=== PATIENT | female | born 1970 | race Caucasian/White ===

== ENCOUNTER → 2016-11-15 | Outpatient (CLI) | payer BC ==
[~2016-11-15] MED LIST: ACET-1256 PO; ASPCH81 PO; BNT10 PO; BUPR-266 PEG; CALC-461 PO; CHOL100010 PO; CIPR-255 PO; CLON0.5T3 PO; IBUP-103 PO; METR0.75 TOP; MULTTAB83 PO; OMEG10002 PO; ONDA4TAB65 PO; PANT40TA PO; SERT1TAB68 PO
== END | disposition home or self-care (01) ==
LOC: C.PAPS 14:18
PROVIDERS: ATTEND Obstetrics & Gynecology
DX: Z01.419 Encounter for gynecological examination (general) (routine) without abnormal findings (principal)

== ENCOUNTER → 2017-03-01 | Outpatient (CLI) | payer BC ==
[2017-03-05 07:04] LABS: CHLAMYDIA TRACH RNA*** NOT DETECTED (NOT DETECTED); GC (NEIS GONORRHOEAE)RNA** NOT DETECTED (NOT DETECTED)
== END | disposition home or self-care (01) ==
LOC: C.LABSPEC 14:31
PROVIDERS: ATTEND Physician Assistant
DX: N89.8 Other specified noninflammatory disorders of vagina (principal)

== ENCOUNTER → 2017-05-14 | Outpatient (CLI) | payer BC ==
[2017-05-17 11:59] LABS: HERPES SIMPLEX CULT SOURCE OTHER-LEFT LABIA MIN; HERPES SIMPLEX VIRUS CULT NOT ISOLATED (NOT ISOLATED)
== END | disposition home or self-care (01) ==
LOC: C.LABSPEC 14:30
PROVIDERS: ATTEND Physician Assistant
DX: N89.8 Other specified noninflammatory disorders of vagina (principal); N94.9 Unspecified condition associated with female genital organs and menstrual cycle

== ENCOUNTER 2018-01-03 22:08 | Inpatient (IN) | payer BC, OTHER ==
[~2018-01-03] VITALS: Ht 167.6 cm; Wt 84.0 kg
[2018-01-03] MEDS ORDERED: ONDANSETRON INJ 2 MG/ML 2 ML VIAL IV STA (22:32)
[2018-01-03] MEDS ORDERED: SODIUM CHLORIDE 0.9% 1000ML 1,000 ML IV STA (22:32)
[2018-01-03] MEDS ORDERED: KETOROLAC TROMETHAMINE 30 MG/ML VIAL IV STA (22:32)
[2018-01-03] MEDS ORDERED: OPTIRAY 320 IV PRN (22:45)
[2018-01-03 23:02] LABS: EOS % 0.3 %; EOS ABS # 0.05 K/uL (0-0.5); HEMATOCRIT 40.9 % (37-47); HEMOGLOBIN 14.7 g/dL (12.0-16.0); IG# 0.06 K/uL (0.00-0.02); LYMPH ABS # 1.01 K/uL (1.2-3.4); MEAN CELL VOLUME 95.6 fL (80-100); MEAN CORPUSCULAR HEMOGLOBIN 34.3 pg (25-34); MEAN CORPUSCULAR HGB CONC 35.9 g/dl (32-36); MEAN PLATELET VOLUME 9.7 fL (7.4-10.4); MONO % 4.7 %; MONO ABS # 0.79 K/uL (0.11-0.59); NEUT % 88.6 %; NEUT ABS # 14.89 K/uL (1.4-6.5); PLATELET COUNT 276 K/uL (130-400); RED CELL DISTRIBUTION WIDTH CV 12.4 % (11.5-14.5); RED CELL DISTRIBUTION WIDTH SD 43.6 fL (36.4-46.3)
[2018-01-03 23:04] LABS: ISTAT CREATININE 0.7 mg/dl (0.6-1.3); ISTAT IONIZED CALCIUM 1.12 mmol/l (1.12-1.32); ISTAT POTASSIUM 3.7 mEq/L (3.3-5.0)
[2018-01-03 23:28] LABS: CREATININE 0.8 mg/dl (0.60-1.20)
[2018-01-03 23:29] LABS: POTASSIUM 3.5 mmol/L (3.5-5.1); TOTAL PROTEIN 7.9 gm/dl (6.4-8.2)
[2018-01-04] VITALS (12 sets, daily range): BP systolic 95–112; BP diastolic 54–70; PULSE 63–105; TEMP 36.3–37.2; O2SAT 92–97; Ht 167.6 cm; Wt 84.0 kg
[2018-01-04] MEDS ORDERED: PIPERACILLIN/TAZOBACTAM 4.5 GM/100ML D5W IV STA (00:17)
[2018-01-04] MEDS ORDERED: SODIUM CHLORIDE 0.9% 1000ML 1,000 ML IV STA (00:24)
[2018-01-04] MEDS ORDERED: ASPI81TA28 PO (00:45)
[2018-01-04] MEDS ORDERED: DOXY20TA3 PO (00:47)
[2018-01-04] MEDS ORDERED: MISCCAP80 PO (00:52)
--- NOTE | 2018-01-04 01:35 | History and Physical ---
History & Physical Date Jan 04, 2018. Chief Complaint RLQ abdominal pain History of Present Illness The patient is a 47 year old female with complaints of RLQ abdominal pain starting this evening when she went to get up from her chair at dinner. Reports the pain has been constant and severe. PSHx significant for right hemicolectomy with ileocolonic anastamosis with Dr. Lucas approximately 2 years ago, C- section x2. She had the resection due to a colonic mass found on colonoscopy with Dr. Plata. FHx positive for colon cancer (sister). She reports she had an infected incision site post-operatively after the colectomy. She has had a couple episodes of pain since her colectomy, one for which she states she was hospitalized for and place on antibiotics for a few days due to a microperforation. She reports she has felt warm today but denies fever/chills/ recent illness. Reports she has felt mildly nauseous but denies any vomiting. She called the nutrition tech doctor earlier this evening who instructed her to take miralax which did not help although produced a small BM. denies blood in stool. She has been urinating without difficulty. Last ate around 1700 She does take Aspirin 81mg PO QD but denies use of other blood thinning or anticoagulant medications. WBC 16.8. CT shows mucosal wall thickening and enhancement involving multiple small bowel loops in the right lower quadrant compatible with infectious or inflammatory process. Evidence of diffuse pneumoperitoneum concerning for bowel perforation. 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 Surgical Problems: (1) History of colon resection Additional History Hepatic Disease: No Endocrine Disorder: No Kidney Disease: No Hypertension: No Heart Disease: No Bleeding Tendencies: No Infectious Diseases: No Allergies Coded Allergies: Morphine and Related (Unverified Allergy, Intermediate, vomiting, 07/05/16) Azithromycin (Unverified Adverse Reaction, Unknown, VOMITING AND MIGRANES , 07/05/16) Home Medications Scheduled Aspirin (Aspirin Ec), 81 MG PO QPM Clonazepam (Klonopin), 0.5 MG PO QPM Doxycycline Hyclate (Doxycycline Hyclate), 20 MG PO BID Multiple Vitamin (Multi-Vitamin), 1 TAB PO HS [place]-3 Fatty Acids (Fish Oil), 1,000 MG PO QAM Probiotic Product (Probiotic), 1 CAP PO DAILY Physical Examination Skin: warm/dry Eyes: normal inspection Head: normocephalic, atraumatic Neck: trachea midline Respiratory/Chest: normal breath sounds, no respiratory distress Cardiovascular: regular rate, rhythm, no murmur Abdomen / GI: + pertinent finding (RLQ TTP moderate, +rebound tenderness. ) Neurologic/Psych: alert, oriented x 3 Diagnosis perforated viscus ASA Classification: ASA Class II Plan of Treatment Perforated viscus Plan for exploratory laparotomy possible bowel resection with Dr. Connolly in the OR tonight. NPO, IV Zosyn 4.5g onboard, IV fluids, SCDs. Findings discussed with Dr. Connolly. OR Notified. Please contact with questions or concerns.
[2018-01-04] MEDS ORDERED: PROPOFOL IV EMULSION 10 MG/ML 20 ML VIAL IV ONE (01:42)
[2018-01-04] MEDS ORDERED: LIDOCAINE HCL 2% 2 ML VIAL (20MG/ML) ONE (01:42)
[2018-01-04] MEDS ORDERED: ROCURONIUM BROMIDE 10 MG/ML 5 ML VIAL IV ONE ×2 (01:42→04:24)
[2018-01-04] MEDS ORDERED: SUCCINYLCHOLINE CHLORIDE 20 MG/ML 10 ML VIAL IV ONE (01:42)
[2018-01-04] MEDS ORDERED: FENTANYL CITRATE INJ 50 MCG/1 ML 2 ML VIAL ONE ×2 (01:43→03:42)
[2018-01-04] MEDS ORDERED: SODIUM CHLORIDE 0.9% INJ 10 ML VIAL ONE (01:45)
[2018-01-04] MEDS ORDERED: BUPIVACAINE/EPINEPHRINE 0.5% MPF 1:200,000 30 ML VIAL ONE ×2 (01:49→02:14)
[2018-01-04] MEDS ORDERED: DEXAMETHASONE SOD INJ 4 MG/ML VIAL ONE ×2 (02:14→03:28)
[2018-01-04] MEDS ORDERED: HEPARIN SOD 5000 UNIT/0.5 ML CARP SQ STA (02:58)
[2018-01-04] MEDS ORDERED: KETOROLAC TROMETHAMINE 30 MG/ML VIAL ONE (03:28)
[2018-01-04] MEDS ORDERED: GLYCOPYRROLATE INJ 0.2 MG/ML VIAL ONE (03:28)
[2018-01-04] MEDS ORDERED: NEOSTIGMINE METHYLSULFATE 5 MG/5 ML SYR ONE (03:28)
[2018-01-04] MEDS ORDERED: ONDANSETRON INJ 2 MG/ML 2 ML VIAL ONE (03:28)
--- NOTE | 2018-01-04 03:50 | [facility] Post Operative Brief Note ---
Immediate Operative Summary Operative Date Jan 04, 2018. Pre-Operative Diagnosis perforated viscous Post-Operative Diagnosis small bowel perforation Procedure(s) Performed ex-lap; partial small bowel resection; abdominal washout; enterolysis Surgeon Mohsen Hospital Technician Surgeon(s) Elly Barillas Estimated Blood Loss 20 cc Findings Consistent with Post-Op Diagnosis Specimens portion of small bowel Drains DANE into RLQ Complication(s) none
--- NOTE | 2018-01-04 03:57 | [facility] Operative Report ---
Operative Report Operative Date Jan 04, 2018. Pre-Operative Diagnosis perforated viscous Post-Operative Diagnosis small bowel perforation Procedure(s) Performed ex-lap; partial small bowel resection; abdominal washout; enterolysis Surgeon Mohsen Charger Operator Surgeon(s) Elly Barillas Estimated Blood Loss 20 cc Specimens portion of small bowel Drains DANE into RLQ Complication(s) none Description of Procedure After informed consent was obtained the patient was taken the operating room and placed in a supine position. After successful intubation a Alvarez catheter was placed as well as an NG tube. The abdomen was then sterilely prepped and draped in usual fashion. I made an ellipse around her old midline incision above her umbilicus. This was done with a 10 blade scalpel and I used electrocautery to remove her old widened scar. I carried this down through the soft tissue to the anterior fascia using electrocautery. I then elevated the peritoneum with hemostats and opened it under direct vision with a Metzenbaum scissor. I extended this to both poles using electrocautery. Part way through the procedure I had to extend this incision around the umbilicus for better exposure. Once in the abdomen there was a moderate amount of purulent fluid. It was not fecal material however it was purulent. There was diffuse thickening of the small bowel worse distally. The bowel was thickened and erythematous. Initially had trouble finding where the perforation was. It ended up being a small pinhole on a piece of blind limb of her small bowel from her previous ileocolonic anastomosis. With gentle pressure I could eat express bilious/fecal material. This was a blind end of small bowel existing from her previous anastomosis. Essentially it was acting like an appendicitis. There were some adhesions of the small bowel. I had to take these down using Metzenbaum scissors. Once the adhesions were taken down I was then able to use a CARLTON stapler with a purple cartridge to basically excise this blind limb of small bowel again similar to an appendectomy. This was passed off to be sent to pathology. I ran the entire small bowel from the ligament of Treitz down to the anastomosis. Again other than thickened small bowel with erythematous serosa there were no other areas of perforation or stricture or fistula. Remaining large bowel all appeared normal down to the rectum. There is a small left ovarian cyst. Otherwise the ovaries and uterus appeared grossly normal. Stomach gallbladder and liver all appeared normal as well. I then irrigated the entire abdomen with multiple liters of warm irrigating solution until all the irrigant was clear. There is adequate hemostasis at the end of the procedure. I did oversew my staple line with 3-0 silk in Lembert fashion. I placed a 10 flat Mukund-Mratinez drain from the right upper quadrant angle down towards the pelvis. It was secured to the skin using 2-0 nylon. The fascia was then closed using 0 PDS starting either pole and running them and securing them together in the midline. Soft tissue was irrigated and deep layers were closed with 3-0 Vicryl and skin was closed with 4-0 Monocryl. A silver dressing was applied. Patient was awakened extubated and transferred to recovery in stable condition. My physician's corporate administrative assistant was present through the entire case. He helped prep the patient. He helped with exposure throughout the case. He helped with wound closure and dressing placement at the end of the case. I attest to the content of the Intraoperative Record and any orders documented therein. Any exceptions are noted below.
[2018-01-04] MEDS ORDERED: PROMETHAZINE HCL INJ 6.25 MG in SODIUM CHLORIDE 0.9% 50ML 50 ML IV PRN (04:15)
[2018-01-04] MEDS ORDERED: ONDANSETRON INJ 2 MG/ML 2 ML VIAL IV PRN (04:15)
[2018-01-04] MEDS ORDERED: PIPERACILL/TAZOBAC CONSULT ACTIVE PRN (04:15)
[2018-01-04] MEDS ORDERED: HYDROmorphone INJ 0.5 MG/0.5 ML SYR IV PRN (04:15)
[2018-01-04] MEDS ORDERED: EpHEDrine SULFATE INJ 50 MG/ML AMP IV PRN (04:15)
[2018-01-04] MEDS ORDERED: FENTANYL CITRATE INJ 50 MCG/1 ML 2 ML VIAL IV PRN (04:15)
[2018-01-04] MEDS ORDERED: ATROPINE SULFATE 0.1 MG/ML 5ML SYR IV PRN (04:15)
[2018-01-04] MEDS ORDERED: HYDROmorphone INJ 1 MG/ML SYR IV PRN ×2 (04:15)
--- NOTE | 2018-01-04 05:11 | Anesthesiology Progress Note ---
Anesthesia Post Op Note Date & Time Jan 04, 2018 at 05:10 Vital Signs Pain Intensity: 8.0 Vital Signs Past 12 Hours Date Time Temp Pulse Resp B/P (MAP) Pulse Ox O2 Delivery O2 Flow Rate FiO2 01/04/18 01:44 36.7 90 18 120/50 99 Room Air 01/04/18 00:14 114 18 114/44 99 Room Air 01/03/18 23:15 108 01/03/18 23:12 95 Room Air 01/03/18 22:11 36.8 115 18 160/72 99 Room Air Notes Mental Status: alert / awake / arousable, participated in evaluation Pt Amnestic to Procedure: Yes Nausea / Vomiting: adequately controlled Pain: adequately controlled Airway Patency, RR, SpO2: stable & adequate BP & HR: stable & adequate Hydration State: stable & adequate Anesthetic Complications: no major complications apparent TAP block working well in pacu. Nausea well controlled with 1 low dose of phenergan.
--- NOTE | 2018-01-04 05:34 | EMERGENCY ROOM VISIT NOTE ---
History First contact with patient: 22:17 Chief Complaint: ABDOMINAL PAIN Stated Complaint: SEVERE ABDOMINAL PAIN Nursing Triage Summary: abdominal pain nausea since 1800 this evening History of Present Illness The patient is a 47 year old female who presents to the Emergency Room with complaints of severe sudden onset of right lower quadrant pain for the past few hours described as severe, 9 out of 10. Nothing makes it better or worse. It does not radiate. Patient with some nausea without vomiting or diarrhea. Patient states she had 2 beers at dinner tonight. Patient denies chest pain, dyspnea, fever, chills, flank pain, back pain, urinary symptoms. Patient had colon resection in the past for colon mass and then complications with infection. No history of colon cancer. Patient called her family doctor was advised to get the ER. Patient states she cannot take narcotics. She took Tylenol prior to arrival. Review of Systems An 10 system review of systems was completed with positives and pertinent negatives listed in the HPI. 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 (3) Perforated abdominal viscus Surgical Problems: (1) History of colon resection Family History No pertinent family history Social History Smoking Status: Current Every Day Smoker Alcohol Use: occasionally Drug Use: none Occupation Status: employed Current/Historical Medications Scheduled Aspirin (Aspirin Ec), 81 MG PO QPM Clonazepam (Klonopin), 0.5 MG PO QPM Doxycycline Hyclate (Doxycycline Hyclate), 20 MG PO BID Multiple Vitamin (Multi-Vitamin), 1 TAB PO HS [place]-3 Fatty Acids (Fish Oil), 1,000 MG PO QAM Probiotic Product (Probiotic), 1 CAP PO DAILY Physical Exam Vital Signs Date Time Temp Pulse Resp B/P (MAP) Pulse Ox O2 Delivery O2 Flow Rate FiO2 01/04/18 05:01 70 16 104/61 (65) 94 01/04/18 05:01 70 01/04/18 04:56 67 01/04/18 04:56 67 18 109/59 (65) 94 Room Air 01/04/18 04:51 66 01/04/18 04:51 66 18 107/53 (69) 92 Room Air 01/04/18 04:46 67 18 112/62 (75) 94 Room Air 01/04/18 04:46 67 01/04/18 04:41 65 01/04/18 04:41 66 14 118/66 (79) 94 Room Air 01/04/18 04:36 62 01/04/18 04:36 62 16 123/66 (78) 95 Room Air 01/04/18 04:31 36.7 68 16 113/69 (81) 94 Oxymask 0 01/04/18 04:31 67 01/04/18 04:26 71 18 108/65 (77) 98 Oxymask 4 01/04/18 04:26 71 01/04/18 04:21 36.4 64 18 110/64 (75) 99 Oxymask 6 01/04/18 04:21 64 01/04/18 04:16 67 01/04/18 04:16 67 18 108/70 (80) 98 Oxymask 6 01/04/18 04:11 68 01/04/18 04:11 67 16 117/57 (63) 99 Oxymask 8 01/04/18 04:06 77 01/04/18 04:06 36.6 77 14 100 Oxymask 8 01/04/18 04:03 113/62 (74) 01/04/18 01:44 36.7 90 18 120/50 99 Room Air 01/04/18 00:14 114 18 114/44 99 Room Air 01/03/18 23:15 108 01/03/18 23:12 95 Room Air 01/03/18 22:11 36.8 115 18 160/72 99 Room Air Physical Exam VITALS: Vitals are noted on the nurse's note and reviewed by myself. Vital signs stable. GENERAL: Pleasant female who appears in pain in no acute distress, nondiaphoretic, well-developed well-nourished. SKIN: The skin was without rashes, erythema, edema, or bruising. There is no tenting of the skin. Capillary reflex less than 2 seconds. HEAD: Normocephalic atraumatic. EARS: External auditory canals clear, tympanic membranes pearly vargas without erythema or effusion bilaterally. EYES: Pupils equal round and reactive to light and accommodation. Conjunctivae without injection, sclerae without icterus. Extraocular movements intact. NOSE: Patent, turbinates without inflammation or discharge. MOUTH: Mucous membranes moist. Pharynx without erythema or exudate. Uvula midline. Airway patent. Tongue does not deviate. NECK: Supple without nuchal rigidity. No lymphadenopathy. No thyromegaly. Cervical spine is nontender. No JVD. HEART: Regular rate and rhythm without murmurs gallops or rubs. LUNGS: Clear to auscultation bilaterally without wheezes, rales or rhonchi. No retractions or accessory muscle use. ABDOMEN: Positive bowel sounds x 4. Normal tympanic percussion. Soft, tender to palpation right lower quadrant, without masses or organomegaly. Monte sign negative. No guarding or rebound tenderness. No CVA tenderness MUSCULOSKELETAL: No muscle atrophy, erythema, or edema noted. NEURO: Patient was alert and oriented to person place and time. Normal sensation to light and sharp touch. No focal neurological deficits. Medical Decision & Procedures Laboratory Results Test 01/03/18 22:47 01/03/18 22:51 01/03/18 23:06 01/04/18 01:42 RDW Standard Deviation 43.6 fL (36.4-46.3) RDW Coefficient of Variation 12.4 % (11.5-14.5) White Blood Count 16.80 K/uL (4.8-10.8) Red Blood Count 4.28 M/uL (4.2-5.4) Hemoglobin 14.7 g/dL (12.0-16.0) Hematocrit 40.9 % (37-47) Mean Corpuscular Volume 95.6 fL (80-100) Mean Corpuscular Hemoglobin 34.3 pg (25-34) Mean Corpuscular Hemoglobin Concent 35.9 g/dl (32-36) Platelet Count 276 K/uL (130-400) Mean Platelet Volume 9.7 fL (7.4-10.4) Neutrophils (%) (Auto) 88.6 % Lymphocytes (%) (Auto) 6.0 % Monocytes (%) (Auto) 4.7 % Eosinophils (%) (Auto) 0.3 % Basophils (%) (Auto) 0.0 % Neutrophils # (Auto) 14.89 K/uL (1.4-6.5) Lymphocytes # (Auto) 1.01 K/uL (1.2-3.4) Monocytes # (Auto) 0.79 K/uL (0.11-0.59) Eosinophils # (Auto) 0.05 K/uL (0-0.5) Basophils # (Auto) 0.00 K/uL (0-0.2) Immature Granulocyte % (Auto) 0.4 % Immature Granulocyte # (Auto) 0.06 K/uL (0.00-0.02) Est Creatinine Clear Calc Drug Dose 94.2 ml/min Direct Bilirubin 0.1 mg/dl (0-0.2) Lipase 164 U/L (73-393) Human Chorionic Gonadotropin, Qual NEG (NEG) Ethyl Alcohol mg/dL < 3.0 mg/dl (0-3) Bedside Hemoglobin 14.6 g/dl (12.0-16.0) Bedside Hematocrit 43 % (37-47) Bedside Sodium 139 mEq/L (135-144) Bedside Potassium 3.7 mEq/L (3.3-5.0) Bedside Chloride 101 mEq/L (101-112) Bedside Total CO2 27 mEq/l (24-31) Bedside Blood Urea Nitrogen 14 mg/dl (7-18) Bedside Creatinine 0.7 mg/dl (0.6-1.3) Bedside Glucose (other) 95 mg/dl (70-99) Bedside Ionized Calcium (Cheryl) 1.12 mmol/l (1.12-1.32) Bedside Lactic Acid Venous 1.02 mmol/L (0.90-1.70) Urine Color YELLOW Urine Appearance CLEAR (CLEAR) Urine pH 5.0 (4.5-7.5) Urine Specific [place] 1.028 (1.000-1.030) Urine Protein NEG (NEG) Urine Glucose (UA) NEG (NEG) Urine Ketones TRACE (NEG) Urine Occult Blood NEG (NEG) Urine Nitrite NEG (NEG) Urine Bilirubin NEG (NEG) Urine Urobilinogen NEG (NEG) Urine Leukocyte Esterase NEG (NEG) Test 01/04/18 04:44 Medications Administered Medications (Trade) Dose Ordered Sig/Kevin Route Start Time Stop Time Status Last Admin Dose Admin Ketorolac Tromethamine (Toradol Inj) 10 mg NOW STAT IV 01/03/18 22:32 01/03/18 22:36 DC 01/03/18 23:07 10 MG Ondansetron HCl (Zofran Inj) 4 mg NOW STAT IV 01/03/18 22:32 01/03/18 22:36 DC 01/03/18 23:07 4 MG Sodium Chloride 1,000 ml @ 999 mls/hr Q1H1M STAT IV 01/03/18 22:32 01/03/18 23:32 DC 01/03/18 23:07 999 MLS/HR Piperacillin Sod/ Tazobactam Sod (Zosyn Iv) 4.5 gm NOW STAT IV 01/04/18 00:17 01/04/18 00:19 DC 01/04/18 00:44 4.5 GM Sodium Chloride 1,000 ml @ 125 mls/hr Q8H STAT IV 01/04/18 00:24 01/04/18 04:21 DC 01/04/18 00:44 125 MLS/HR Heparin Sodium (Porcine) (Heparin Sq 5000 Unit/0.5ml) 5,000 unit NOW STAT SQ 01/04/18 02:58 01/04/18 03:04 DC 01/04/18 03:26 5,000 UNIT Fentanyl Citrate (Fentanyl Inj) 50 mcg Q5M PRN IV 01/04/18 04:15 01/04/18 07:00 01/04/18 04:42 50 MCG Promethazine HCl 6.25 mg/Sodium Chloride 50.25 ml @ 202 mls/hr ONE PRN IV 01/04/18 04:15 01/04/18 04:26 DC 01/04/18 04:26 202 MLS/HR ED Course Prior records/ancillary studies reviewed. Triage Nursing notes reviewed. The patient's history was concerning for abdominal pain. Differential diagnosis: Etiologies such as appendicitis, diverticulitis, PUD, biliary pathology, UTI, pancreatitis, obstruction, mesenteric ischemia, aortic pathology, infections, inflammatory bowel disease, renal colic, as well as others were entertained. Physical examination findings: As above. ER treatment provided: Toradol, Zofran, IV fluids On reassessment the patient felt better. Diagnostics interpreted by me: The labs revealed negative lactic acid. Leukocytosis. Stable H&H Imaging studies: CT concerning for microperforation per radiology. Radiologist did call and speak with me. Surgery was immediately consulted Consultation: A consultation was placed with the surgical PASaulo. The case was discussed and diagnostics were reviewed. The patient was evaluated in the ER for further treatment. Exam and history seem consistent with bowel perforation. Patient was started on broad-spectrum antibiotics. She is placed n.p.o. She was evaluated by the surgical PA and surgeon and emergently taken to the OR. Patient is stable H&H. Negative lactic acid. Patient is agreeable to treatment plan of admission to surgical service and to the OR. By the evaluation outlined above emergent etiologies such as appendicitis, diverticulitis, PUD, biliary pathology, UTI, pancreatitis, obstruction, mesenteric ischemia, aortic pathology, inflammatory bowel disease, renal colic , as well as others were deemed relatively unlikely. The pt informed about the findings as listed above. All questions were answered and pleased with the treatment. Case reviewed with my attending The chart was completed utilizing [employer] Speech voice recognition software. Grammatical errors, random word insertions, pronoun errors, and incomplete sentences are an occassional consequence of this system due to software limitations, ambient noise, and hardware issues. Any formal questions or concerns about the content, text, or information contained within the body of this dictation should be directly addressed to the physician dental assistant teacher for clarification. Medical Decision As above Medication Reconcilliation Current Medication List: was personally reviewed by me Blood Pressure Screening Patient's blood pressure: Normal blood pressure Impression Primary Impression: Bowel perforation Departure Information Dispostion Being Evaluated By Surgeon Condition FAIR Referrals Kj Lucas M.D. (PCP) Patient Instructions My [facility]
[2018-01-04 06:20] LABS: BASO % 0.1 %; BASO ABS # 0.01 K/uL (0-0.2); HEMATOCRIT 34.3 % (37-47); HEMOGLOBIN 12.2 g/dL (12.0-16.0); IG# 0.06 K/uL (0.00-0.02); LYMPH % 1.8 %; MEAN CELL VOLUME 96.1 fL (80-100); MEAN CORPUSCULAR HEMOGLOBIN 34.2 pg (25-34); MEAN CORPUSCULAR HGB CONC 35.6 g/dl (32-36); MEAN PLATELET VOLUME 9.4 fL (7.4-10.4); MONO % 1.9 %; MONO ABS # 0.31 K/uL (0.11-0.59); NEUT % 95.8 %; NEUT ABS # 16.01 K/uL (1.4-6.5); PLATELET COUNT 220 K/uL (130-400); RED CELL DISTRIBUTION WIDTH CV 12.7 % (11.5-14.5); RED CELL DISTRIBUTION WIDTH SD 44.4 fL (36.4-46.3); WHITE BLOOD COUNT 16.69 K/uL (4.8-10.8)
[2018-01-04] MEDS: PIPERACILL/TAZOBAC IV 4.5 GM in DEXTROSE 5% 100ML 100 ML IV SCH ×3 (06:22→21:37)
[2018-01-04] MEDS: LACTATED RINGER'S 1000ML 1,000 ML IV SCH ×2 (06:22→16:36)
--- NOTE | 2018-01-04 06:22 | Procedure Note ---
Procedure Note Date of Service Jan 04, 2018. Procedure Note The following procedure was performed by me as part of the anesthetic but was not documented on the anesthetic record. Bilateral transversus abdominus plane block for post-op pain control. After induction, the L and R flank were prepped. Under sterile conditions, a 10cm needle was advanced in to the plane between the internal oblique and transversus abdominus at the level of the triangle of petit. 15cc of 0.5% bupivicane with epinephrine 1:200k and 2mg of decadron was injected and separation between the two muscle groups was seen on ultrasound. This was repeated on the opposite side. Standard ASA monitors were used and there were no signs of any intravascular injection. The patient tolerated the procedure well. OR staff then proceeded with surgical prep.
[2018-01-04 07:14] LABS: ALBUMIN 3.1 gm/dl (3.4-5.0); CALCIUM 7.6 mg/dl (8.5-10.1); CREATININE 0.66 mg/dl (0.60-1.20); POTASSIUM 4.4 mmol/L (3.5-5.1); TOTAL PROTEIN 6.3 gm/dl (6.4-8.2)
[2018-01-04] MEDS: HYDROmorphone INJ 0.5 MG/0.5 ML SYR IV PRN ×2 (07:18→18:16)
--- NOTE | 2018-01-04 07:54 | DIAGNOSTIC IMAGING REPORT ---
ABDOMEN AND PELVIS CT WITH IV CONTRAST CT DOSE: 472.22 mGy.cm HISTORY: Severe generalized abdominal pain. TECHNIQUE: Multiaxial CT images of the abdomen and pelvis were performed following the use of intravenous contrast. A dose lowering technique was utilized adhering to the principles of ALARA. COMPARISON STUDY: Abdomen and pelvis CT 07/05/2016. FINDINGS: The left lung base is clear. Patchy groundglass densities at the right lung base. This could represent dependent change or pneumonia. Moderate pneumoperitoneum seen predominantly within the upper abdomen. No fractures within the visualized osseous structures. The liver, gallbladder, pancreas, spleen, and adrenal glands are unremarkable. Subcentimeter hypodense lesion within the upper pole the left kidney is too small to characterize but favors a cyst. No hydronephrosis. No retroperitoneal lymphadenopathy. The bladder, uterus, bilateral adnexa are unremarkable. Trace pelvic free fluid. Sigmoid diverticulosis. No evidence for bowel obstruction. Status post right hemicolectomy with ileocolonic anastomosis. The ileal loop within the right lower quadrant and deep pelvis demonstrate mild thickening and surrounding fat stranding. This is consistent with a nonspecific ileitis. No dilated loops of bowel identified. IMPRESSION: 1. Moderate pneumoperitoneum predominantly within the upper abdomen. In the absence of recent surgery this is consistent with a bowel perforation. The exact location is not clearly identified on this study. Surgical consultation recommended. 2. Multiple thickened loops of small bowel seen within the right lower quadrant and deep pelvis consistent with a nonspecific ileitis. This favors an inflammatory or infectious process. 3. No evidence for bowel obstruction. 4. Postoperative changes as described above. 5. Trace pelvic free fluid. Electronically signed by: Evans Hahn M.D. 01/04/2018 7:53 AM Dictated Date/Time: 01/04/2018 7:41 AM
[2018-01-04] MEDS: ENOXAPARIN 40 MG/0.4 ML SYR SQ SCH (09:07)
[2018-01-04] MEDS: ACETAMINOPHEN IV 100 ML IV PRN ×2 (09:25→21:38)
[2018-01-04] MEDS ORDERED: AMOX875T PO (12:07)
[2018-01-04] MEDS ORDERED: OXYC-57 PO (12:08)
--- NOTE | 2018-01-04 12:09 | Discharge Instructions ---
Discharge Instructions Date of Service Jan 04, 2018. Admission Reason for Admission: Perforated Abdominal Viscus Discharge Discharge Diagnosis / Problem: perforated viscus Discharge Goals Goal(s): Decrease discomfort Activity Recommendations Activity Limitations: as noted below Lifting Limitations: no more than 10 pounds Shower/Bathe: no limitations Driving or Machine Use: resume 3 days after discharge . Instructions / Follow-Up Instructions / Follow-Up Dr. Connolly in 1-2 weeks, call [phone] to schedule or for any questions Current Hospital Diet Patient's current hospital diet: Clear Liquid Diet Discharge Diet Recommended Diet: Regular Diet Procedures Procedures Performed: Exploratory laparotomy, partial small bowel resection, abdominal wash out, enterolysis. Pending Studies Studies pending at discharge: no Work Instructions Return To Work: after follow-up Medical Emergencies . Who to Call and When: Medical Emergencies: If at any time you feel your situation is an emergency, please call 911 immediately. . Non-Emergent Contact Non-Emergency issues call your: Surgeon Call Non-Emergent contact if: you have a fever, temperature is above 101.5, your pain is not controlled, wound has increased redness, you have any medication questions . "Provider Documentation" section prepared by Agapito Ramos. . [place] Drug Monitoring Program Search Results: no issues identified
[2018-01-04] MEDS ORDERED: HYDROCODONE/ACETAMIN 5/325MG TAB PO PRN (12:15)
[2018-01-04] MEDS ORDERED: OXYCODONE/ACETAMINOPHEN 5-325 TAB PO PRN (12:15)
--- NOTE | 2018-01-04 12:29 | Surgery Progress Note ---
Surgery Progress Note Date of Service Jan 04, 2018. Subjective Post OP Day: 1 feeling much better. pain controlled. Objective Vital Signs: Date Time Temp Pulse Resp B/P (MAP) Pulse Ox O2 Delivery O2 Flow Rate FiO2 01/04/18 12:21 36.3 64 20 96/57 (70) 95 Room Air 01/04/18 09:10 36.7 93 24 110/64 (79) 94 Room Air 01/04/18 08:30 92 Room Air 01/04/18 07:47 36.6 101 16 103/57 (72) 92 Room Air 01/04/18 07:35 Room Air 0.0 01/04/18 06:58 37.1 105 18 100/62 (75) 95 Room Air 01/04/18 06:26 37.2 70 15 95/59 (71) 94 Room Air 01/04/18 06:17 96 Room Air 01/04/18 05:59 95 Room Air 01/04/18 05:54 37.2 71 16 103/65 (78) 95 Room Air 01/04/18 05:42 67 01/04/18 05:42 67 94 01/04/18 05:41 110/57 (67) 01/04/18 05:37 67 94 01/04/18 05:37 67 01/04/18 05:36 108/61 (68) 01/04/18 05:32 68 94 01/04/18 05:32 68 01/04/18 05:31 109/57 (67) 01/04/18 05:28 108/59 (68) 01/04/18 05:27 69 01/04/18 05:27 36.7 68 16 94 Room Air 01/04/18 05:26 100/57 (70) 01/04/18 05:22 66 93 01/04/18 05:22 66 01/04/18 05:21 105/55 (64) 01/04/18 05:17 88 01/04/18 05:17 36.8 88 16 95 Room Air 01/04/18 05:16 103/63 (69) 01/04/18 05:12 67 16 94 01/04/18 05:12 67 01/04/18 05:11 113/60 (77) 01/04/18 05:07 65 01/04/18 05:07 65 18 93 01/04/18 05:06 109/57 (75) 01/04/18 05:02 63 18 95 01/04/18 05:02 64 01/04/18 05:01 70 16 104/61 (65) 94 01/04/18 05:01 70 01/04/18 04:56 67 01/04/18 04:56 67 18 109/59 (65) 94 Room Air 01/04/18 04:51 66 01/04/18 04:51 66 18 107/53 (69) 92 Room Air 01/04/18 04:46 67 18 112/62 (75) 94 Room Air 01/04/18 04:46 67 01/04/18 04:41 65 01/04/18 04:41 66 14 118/66 (79) 94 Room Air 01/04/18 04:36 62 01/04/18 04:36 62 16 123/66 (78) 95 Room Air 01/04/18 04:31 36.7 68 16 113/69 (81) 94 Oxymask 0 01/04/18 04:31 67 01/04/18 04:26 71 18 108/65 (77) 98 Oxymask 4 01/04/18 04:26 71 01/04/18 04:21 36.4 64 18 110/64 (75) 99 Oxymask 6 01/04/18 04:21 64 01/04/18 04:16 67 01/04/18 04:16 67 18 108/70 (80) 98 Oxymask 6 01/04/18 04:11 68 01/04/18 04:11 67 16 117/57 (63) 99 Oxymask 8 01/04/18 04:06 77 01/04/18 04:06 36.6 77 14 100 Oxymask 8 01/04/18 04:03 113/62 (74) 01/04/18 01:44 36.7 90 18 120/50 99 Room Air 01/04/18 00:14 114 18 114/44 99 Room Air 01/03/18 23:15 108 01/03/18 23:12 95 Room Air 01/03/18 22:11 36.8 115 18 160/72 99 Room Air Physical Exam: DANE drainage (serous) General Appearance: no apparent distress Respiratory/Chest: no respiratory distress, no accessory muscle use Incision(s): clean, dry, intact Laboratory Results: Results Past 24 Hours Test 01/03/18 22:47 01/03/18 22:51 01/03/18 23:06 01/04/18 01:42 Range/Units White Blood Count 16.80 4.8-10.8 K/uL Red Blood Count 4.28 4.2-5.4 M/uL Hemoglobin 14.7 12.0-16.0 g/dL Hematocrit 40.9 37-47 % Mean Corpuscular Volume 95.6 80-100 fL Mean Corpuscular Hemoglobin 34.3 25-34 pg Mean Corpuscular Hemoglobin Concent 35.9 32-36 g/dl Platelet Count 276 130-400 K/uL Mean Platelet Volume 9.7 7.4-10.4 fL Neutrophils (%) (Auto) 88.6 % Lymphocytes (%) (Auto) 6.0 % Monocytes (%) (Auto) 4.7 % Eosinophils (%) (Auto) 0.3 % Basophils (%) (Auto) 0.0 % Neutrophils # (Auto) 14.89 1.4-6.5 K/uL Lymphocytes # (Auto) 1.01 1.2-3.4 K/uL Monocytes # (Auto) 0.79 0.11-0.59 K/uL Eosinophils # (Auto) 0.05 0-0.5 K/uL Basophils # (Auto) 0.00 0-0.2 K/uL RDW Standard Deviation 43.6 36.4-46.3 fL RDW Coefficient of Variation 12.4 11.5-14.5 % Immature Granulocyte % (Auto) 0.4 % Immature Granulocyte # (Auto) 0.06 0.00-0.02 K/uL Sodium Level 136 136-145 mmol/L Potassium Level 3.5 3.5-5.1 mmol/L Chloride Level 103 98-107 mmol/L Carbon Dioxide Level 28 21-32 mmol/L Anion Gap 6.0 17.0 16-25 mmol/L Blood Urea Nitrogen 15 7-18 mg/dl Creatinine 0.80 0.60-1.20 mg/dl Est Creatinine Clear Calc Drug Dose 94.2 ml/min Estimated GFR () 101.8 Estimated GFR (Non- 87.8 BUN/Creatinine Ratio 18.4 10-20 Random Glucose 88 70-99 mg/dl Calcium Level 9.0 8.5-10.1 mg/dl Total Bilirubin 0.4 0.2-1 mg/dl Direct Bilirubin 0.1 0-0.2 mg/dl Aspartate Amino Transf (AST/SGOT) 23 15-37 U/L Alanine Aminotransferase (ALT/SGPT) 27 12-78 U/L Alkaline Phosphatase 56 45-117 U/L Total Protein 7.9 6.4-8.2 gm/dl Albumin 4.0 3.4-5.0 gm/dl Lipase 164 73-393 U/L Human Chorionic Gonadotropin, Qual NEG NEG Ethyl Alcohol mg/dL < 3.0 0-3 mg/dl Bedside Hemoglobin 14.6 12.0-16.0 g/dl Bedside Hematocrit 43 37-47 % Bedside Sodium 139 135-144 mEq/L Bedside Potassium 3.7 3.3-5.0 mEq/L Bedside Chloride 101 101-112 mEq/L Bedside Total CO2 27 24-31 mEq/l Bedside Blood Urea Nitrogen 14 7-18 mg/dl Bedside Creatinine 0.7 0.6-1.3 mg/dl Bedside Glucose (other) 95 70-99 mg/dl Bedside Ionized Calcium (Cheryl) 1.12 1.12-1.32 mmol/l Bedside Lactic Acid Venous 1.02 0.90-1.70 mmol/L Urine Color YELLOW Urine Appearance CLEAR CLEAR Urine pH 5.0 4.5-7.5 Urine Specific [place] 1.028 1.000-1.030 Urine Protein NEG NEG Urine Glucose (UA) NEG NEG Urine Ketones TRACE NEG Urine Occult Blood NEG NEG Urine Nitrite NEG NEG Urine Bilirubin NEG NEG Urine Urobilinogen NEG NEG Urine Leukocyte Esterase NEG NEG Test 01/04/18 06:07 Range/Units White Blood Count 16.69 4.8-10.8 K/uL Red Blood Count 3.57 4.2-5.4 M/uL Hemoglobin 12.2 12.0-16.0 g/dL Hematocrit 34.3 37-47 % Mean Corpuscular Volume 96.1 80-100 fL Mean Corpuscular Hemoglobin 34.2 25-34 pg Mean Corpuscular Hemoglobin Concent 35.6 32-36 g/dl Platelet Count 220 130-400 K/uL Mean Platelet Volume 9.4 7.4-10.4 fL Neutrophils (%) (Auto) 95.8 % Lymphocytes (%) (Auto) 1.8 % Monocytes (%) (Auto) 1.9 % Eosinophils (%) (Auto) 0.0 % Basophils (%) (Auto) 0.1 % Neutrophils # (Auto) 16.01 1.4-6.5 K/uL Lymphocytes # (Auto) 0.30 1.2-3.4 K/uL Monocytes # (Auto) 0.31 0.11-0.59 K/uL Eosinophils # (Auto) 0.00 0-0.5 K/uL Basophils # (Auto) 0.01 0-0.2 K/uL RDW Standard Deviation 44.4 36.4-46.3 fL RDW Coefficient of Variation 12.7 11.5-14.5 % Immature Granulocyte % (Auto) 0.4 % Immature Granulocyte # (Auto) 0.06 0.00-0.02 K/uL Prothrombin Time 10.7 9.0-12.0 SECONDS Prothromb Time International Ratio 1.0 0.9-1.1 Sodium Level 139 136-145 mmol/L Potassium Level 4.4 3.5-5.1 mmol/L Chloride Level 110 98-107 mmol/L Carbon Dioxide Level 21 21-32 mmol/L Anion Gap 8.0 3-11 mmol/L Blood Urea Nitrogen 14 7-18 mg/dl Creatinine 0.66 0.60-1.20 mg/dl Est Creatinine Clear Calc Drug Dose 115.0 ml/min Estimated GFR () 121.9 Estimated GFR (Non- 105.2 BUN/Creatinine Ratio 21.2 10-20 Random Glucose 135 70-99 mg/dl Calcium Level 7.6 8.5-10.1 mg/dl Total Bilirubin 0.8 0.2-1 mg/dl Aspartate Amino Transf (AST/SGOT) 20 15-37 U/L Alanine Aminotransferase (ALT/SGPT) 26 12-78 U/L Alkaline Phosphatase 41 45-117 U/L Total Protein 6.3 6.4-8.2 gm/dl Albumin 3.1 3.4-5.0 gm/dl Globulin 3.2 2.5-4.0 gm/dl Albumin/Globulin Ratio 1.0 0.9-2 Assessment & Plan POD #1 doing well d/c katz start clears/advance as tolerated possible d/c Sunday. DANE can come out prior to d/c. Dr. Thayer covering for weekend.
[2018-01-04] MEDS: ONDANSETRON INJ 2 MG/ML 2 ML VIAL IV PRN ×2 (17:15→20:38)
[2018-01-04] MEDS ORDERED: ONDANSETRON INJ 2 MG/ML 2 ML VIAL IV STA (20:42)
[2018-01-04] MEDS ORDERED: PROMETHAZINE HCL INJ 12.5 MG in SODIUM CHLORIDE 0.9% 50ML 50 ML IV PRN (20:45)
[2018-01-04] MEDS ORDERED: NURSING VERBAL MED ORDER ONE (20:45)
[2018-01-05] MEDS: HYDROmorphone INJ 0.5 MG/0.5 ML SYR IV PRN ×2 (01:41→07:04)
[2018-01-05] MEDS: LACTATED RINGER'S 1000ML 1,000 ML IV SCH ×3 (01:41→21:47)
[2018-01-05 03:36] VITALS: BP 101/59; PULSE 83; TEMP 36.7; O2SAT 96
[2018-01-05 07:32] VITALS: BP 113/68; PULSE 77; TEMP 36.7; O2SAT 96
[2018-01-05] MEDS: ONDANSETRON INJ 2 MG/ML 2 ML VIAL IV PRN (08:50)
[2018-01-05] MEDS: ENOXAPARIN 40 MG/0.4 ML SYR SQ SCH (08:56)
--- NOTE | 2018-01-05 09:40 | Surgery Progress Note ---
Surgery Progress Note Date of Service Jan 05, 2018. Subjective Post OP Day: 2 + feeling well, + flatus, + nausea, + diet (clears), No bowel movement, No vomiting Objective Vital Signs: Date Time Temp Pulse Resp B/P (MAP) Pulse Ox O2 Delivery O2 Flow Rate FiO2 01/05/18 07:32 36.7 77 16 113/68 (83) 96 Room Air 01/05/18 07:32 Room Air 0.0 01/05/18 03:36 36.7 83 16 101/59 (73) 96 Room Air 01/04/18 22:45 36.8 79 16 99/57 (71) 95 Room Air 01/04/18 20:14 36.8 63 18 112/70 (84) 97 Room Air 01/04/18 19:50 Room Air 01/04/18 16:02 36.6 69 17 97/54 (68) 96 Room Air 01/04/18 12:21 36.3 64 20 96/57 (70) 95 Room Air Physical Exam: DANE drainage (serous) General Appearance: WD/WN, no apparent distress Head: normocephalic, atraumatic Neck: supple, trachea midline Respiratory/Chest: lungs clear Cardiovascular: regular rate, rhythm Abdomen: normal bowel sounds, soft, + distended, + tenderness Incision(s): clean, dry, intact Extremities: non-tender, no pedal edema Assessment & Plan POD #2 ex lap w/SB resection -WBC down but 16 -afebrile -CBC in AM -advance to fulls -pain improving, will add toradol -good progress
[2018-01-05] MEDS: ACETAMINOPHEN IV 100 ML IV PRN (09:47)
[2018-01-05] MEDS: KETOROLAC TROMETHAMINE 30 MG/ML VIAL IV PRN ×2 (10:16→16:58)
[2018-01-05 14:57] VITALS: BP 115/72; PULSE 71; TEMP 36.8; O2SAT 95
[2018-01-05 22:55] VITALS: BP 119/69; PULSE 96; TEMP 36.7; O2SAT 94
[2018-01-06] MEDS: KETOROLAC TROMETHAMINE 30 MG/ML VIAL IV PRN ×2 (01:08→11:31)
[2018-01-06] MEDS: ONDANSETRON INJ 2 MG/ML 2 ML VIAL IV PRN (01:12)
[2018-01-06 07:15] VITALS: BP 124/75; PULSE 70; TEMP 36.6; O2SAT 93
[2018-01-06 07:26] LABS: BASO % 0.3 %; BASO ABS # 0.02 K/uL (0-0.2); EOS % 1.2 %; EOS ABS # 0.07 K/uL (0-0.5); HEMATOCRIT 34.3 % (37-47); IG# 0.01 K/uL (0.00-0.02); LYMPH ABS # 1.21 K/uL (1.2-3.4); MEAN CELL VOLUME 96.6 fL (80-100); MEAN CORPUSCULAR HEMOGLOBIN 33.8 pg (25-34); MEAN PLATELET VOLUME 9.5 fL (7.4-10.4); MONO % 9.3 %; MONO ABS # 0.56 K/uL (0.11-0.59); NEUT ABS # 4.18 K/uL (1.4-6.5); PLATELET COUNT 259 K/uL (130-400); RED CELL DISTRIBUTION WIDTH CV 12.2 % (11.5-14.5); RED CELL DISTRIBUTION WIDTH SD 43.3 fL (36.4-46.3); WHITE BLOOD COUNT 6.05 K/uL (4.8-10.8)
[2018-01-06] MEDS: LACTATED RINGER'S 1000ML 1,000 ML IV SCH (07:36)
[2018-01-06] MEDS: ENOXAPARIN 40 MG/0.4 ML SYR SQ SCH (08:58)
[2018-01-06] MEDS ORDERED: ONDA4TAB10 SL (10:33)
--- NOTE | 2018-01-06 10:38 | Surgery Progress Note ---
Surgery Progress Note Date of Service Jan 06, 2018. Subjective Post OP Day: 3 + feeling well, + flatus, + nausea (some but better), + diet (taking po well), No complaints, No bowel movement, No vomiting Objective Vital Signs: Date Time Temp Pulse Resp B/P (MAP) Pulse Ox O2 Delivery O2 Flow Rate FiO2 01/06/18 08:07 Room Air 0.0 01/06/18 07:15 36.6 70 16 124/75 (91) 93 Room Air 01/05/18 23:50 Room Air 01/05/18 22:55 36.7 96 16 119/69 (86) 94 Room Air 01/05/18 15:20 Room Air 01/05/18 14:57 36.8 71 16 115/72 (86) 95 Room Air Physical Exam: DANE drainage (serous; out today) General Appearance: WD/WN, no apparent distress Head: normocephalic, atraumatic Neck: supple, trachea midline Respiratory/Chest: lungs clear Cardiovascular: regular rate, rhythm Abdomen: normal bowel sounds, non distended, soft, + tenderness (mild) Incision(s): clean, dry, intact Extremities: non-tender, no pedal edema Laboratory Results: Results Past 24 Hours Test 01/06/18 07:15 Range/Units White Blood Count 6.05 4.8-10.8 K/uL Red Blood Count 3.55 4.2-5.4 M/uL Hemoglobin 12.0 12.0-16.0 g/dL Hematocrit 34.3 37-47 % Mean Corpuscular Volume 96.6 80-100 fL Mean Corpuscular Hemoglobin 33.8 25-34 pg Mean Corpuscular Hemoglobin Concent 35.0 32-36 g/dl Platelet Count 259 130-400 K/uL Mean Platelet Volume 9.5 7.4-10.4 fL Neutrophils (%) (Auto) 69.0 % Lymphocytes (%) (Auto) 20.0 % Monocytes (%) (Auto) 9.3 % Eosinophils (%) (Auto) 1.2 % Basophils (%) (Auto) 0.3 % Neutrophils # (Auto) 4.18 1.4-6.5 K/uL Lymphocytes # (Auto) 1.21 1.2-3.4 K/uL Monocytes # (Auto) 0.56 0.11-0.59 K/uL Eosinophils # (Auto) 0.07 0-0.5 K/uL Basophils # (Auto) 0.02 0-0.2 K/uL RDW Standard Deviation 43.3 36.4-46.3 fL RDW Coefficient of Variation 12.2 11.5-14.5 % Immature Granulocyte % (Auto) 0.2 % Immature Granulocyte # (Auto) 0.01 0.00-0.02 K/uL Assessment & Plan POD #3 ex lap w/SB resection -WBC normal -afebrile -doing well with diet -pain controlled -home today
[2018-01-06 11:11] VITALS: BP 124/75; PULSE 70; TEMP 36.6; O2SAT 93
== END 2018-01-06 12:29 | disposition home or self-care (01) | DRG 331 ==
LOC: C.EDB 22:10 → C.MSN 01-04 04:12 → ENRESERV 01-04 05:29
PROVIDERS: ADMIT Surgery; ATTEND Surgery
PROC: 3E1 Administration, Physiological Systems and Anatomical Regions, Irrigation (ICD-10-PCS; principal; 2018-01-04 01:33)
PROC: 0DB80ZZ Excision of Small Intestine, Open Approach (ICD-10-PCS; principal; 2018-01-04 01:33)
DX: K63.1 Perforation of intestine (nontraumatic) (principal); Z79.82 Long term (current) use of aspirin; Z79.899 Other long term (current) drug therapy; F17.200 Nicotine dependence, unspecified, uncomplicated; Z88.5 Allergy status to narcotic agent; Z88.1 Allergy status to other antibiotic agents; Z98.890 Other specified postprocedural states